=== PATIENT | male | born 1955 | race Caucasian/White ===

== ENCOUNTER 2024-11-10 14:38 | Inpatient (IN) | payer OTHER ==
[~2024-11-10] VITALS: Ht 167.6 cm; Wt 70.3 kg
[~2024-11-10 14:38] MED LIST: ARTIFICIAL TEAR1513 OP; ASPIRIN ADULT L81 M1 PO; CIPROFLOXACIN500 M4 PO; DEPAKOTE SPRIN125 MG PO; DEPAKOTE250 MG PO; DIVALPROEX SOD125 M1 PO; Depakote500 MG PO; HYDROXYZINE PAM50 MG PO; KLONOPIN1 M1 PO; LITHIUM CARBON300 M2 PO; LITHIUM CARBON450 M1 PO; NAMENDA-28 PO; NAMENDA-5 PO; NATURE'S BLEND F1 MG PO; RIVASTIGMINE T4.5 M1 PO; RIVASTIGMINE TAR6 M1 PO; THIAMINE HCL100 MG PO; TOPCARE OMEPRAZ20 MG PO; TYLENOL325 M2 PO; VIBRAMYCIN100 MG PO; VITAMIN B12500 MC2 PO; ZOCOR20 MG PO
[2024-11-10] MEDS ORDERED: LORazepam 1 MG TAB PO PRN (15:15)
[2024-11-10] MEDS ORDERED: hydrOXYzine hydrochloride 50 MG/ML VIAL IM PRN (15:15)
[2024-11-10] MEDS ORDERED: ACETAMINOPHEN 325 MG TAB PO PRN (16:00)
[2024-11-10] MEDS ORDERED: MG-AL HYDROXIDE/SIMETICONE 30 ML UDC PO PRN (16:00)
[2024-11-10 17:06] VITALS: BP 116/74
[2024-11-10 17:08] VITALS: BP 116/74
[2024-11-10] MEDS ORDERED: Glycerin/Hypromellose/Polyet 300 DRP BOT OPH PRN (17:25)
[2024-11-10 20:11] VITALS: BP 109/56
[2024-11-10] MEDS ORDERED: DIVALPROEX SODIUM 125 MG CAP PO SCH (21:00)
[2024-11-10] MEDS ORDERED: Thiamine 100 MG TAB PO SCH (21:00)
[2024-11-10] MEDS ORDERED: SIMVASTATIN 20 MG TAB PO SCH (21:00)
[2024-11-10] MEDS ORDERED: Memantine Hydrochloride 5 MG TAB PO SCH (21:00)
[2024-11-10] MEDS ORDERED: LITHIUM CARBONATE 450 MG TAB PO SCH (21:00)
[2024-11-10] MEDS ORDERED: Ciprofloxacin Hydrochloride 500 MG TAB PO SCH (22:00)
[2024-11-11] MEDS ORDERED: OMEPRAZOLE 20 MG CAP PO SCH (06:00)
[2024-11-11 06:19] LABS: BASO # 0.2 10*3/uL (0.0-0.1); BASO % 2.8 % (0.0-1.0); EOS # 0.8 10*3/uL (0.0-0.4); EOS % 8.9 % (1.0-4.0); MEAN CELL VOLUME 94.2 fl (80.0-94.0); MEAN CORPUSCULAR HGB 31.4 pg (27.0-31.0); MEAN PLATELET VOLUME 9.4 fl (9.6-12.3); MONO # 1.1 10*3/uL (0.1-1.0); MONO % 13.2 % (3.0-9.0); NEUT # 4.5 10*3/uL (2.3-7.9); NEUT % 53.0 % (47.0-73.0); NUCLEATED RED BLOOD CELL 0.0 % (0.0-0.0); NUCLEATED RED BLOOD CELL 0.0 10*3/uL (0.0-0.0); PLATELET COUNT AUTOMATED 206 10*3/uL (130-400); RED CELL DISTRI WIDTH 12.8 % (0-14.5)
[2024-11-11 06:34] LABS: BUN 17 mg/dl (9-23); LDL CHOLESTEROL 86 mg/dL (9-159); SGPT/ALT 21 U/L (5-49); VALPROIC ACID (DEPAKENE) 54.2 ug/ml (50-100)
[2024-11-11 06:53] LABS: VITAMIN D, 25-HYDROXY 54.9 ng/mL (30-100)
[2024-11-11 08:00] VITALS: BP 108/88
[2024-11-11] MEDS ORDERED: ASPIRIN, CHEWABLE 81 MG TAB PO SCH (09:00)
[2024-11-11] MEDS ORDERED: FOLIC ACID 1 MG TAB PO SCH (09:00)
[2024-11-11] MEDS ORDERED: RIVASTIGMINE 13.3 MG/24 HR TDM T SCH (09:00)
[2024-11-11] MEDS ORDERED: Albuterol Sulf/Ipratropium 3 ML VIAL NEB ONE (09:40)
[2024-11-11] MEDS ORDERED: CYANOCOBALAMIN 500 MCG TAB PO SCH (10:00)
[2024-11-11] MEDS ORDERED: Albuterol Sulf/Ipratropium 3 ML VIAL NEB PRN (10:35)
[2024-11-11 20:00] VITALS: BP 122/89
[2024-11-12 09:04] VITALS: BP 123/73
[2024-11-12] MEDS ORDERED: Bethanechol Chloride 10 MG TAB PO ONE (13:20)
[2024-11-12 20:00] VITALS: BP 117/54
[2024-11-13 07:47] VITALS: BP 139/78
[2024-11-13 20:00] VITALS: BP 115/60
[2024-11-14 08:00] VITALS: BP 95/64
[2024-11-14 20:00] VITALS: BP 105/55
[2024-11-15 08:00] VITALS: BP 110/67
[2024-11-15] MEDS ORDERED: DIVALPROEX SODIUM 125 MG CAP PO SCH (09:00)
[2024-11-15 20:00] VITALS: BP 116/71
[2024-11-15] MEDS ORDERED: Water, Sterile 10 ML VIAL ONE (23:28)
[2024-11-16 01:06] LABS: BILIRUBIN 1+ (Negative); BLOOD 1+ (Negative); CLARITY Clear (Clear); COLOR Dark Yellow (Yellow); KETONE Trace (Negative); LEUKO ESTERASE Trace (Negative); NITRITE Negative (Negative); PH 5.0 (4.5-8.0); SPECIFIC GRAVITY >= 1.030 (1.001-1.030); UROBILINOGEN 1.0 E.U./dl (0.0-1.0)
[2024-11-16 01:15] LABS: MUCOUS 1+
[2024-11-16 01:16] LABS: BACTERIA TRACE
[2024-11-16 07:37] LABS: BASO # 0.3 10*3/uL (0.0-0.1); BASO % 2.3 % (0.0-1.0); EOS # 0.1 10*3/uL (0.0-0.4); EOS % 1.3 % (1.0-4.0); MEAN CELL VOLUME 93.8 fl (80.0-94.0); MEAN CORPUSCULAR HGB 31.1 pg (27.0-31.0); MEAN PLATELET VOLUME 9.8 fl (9.6-12.3); MONO # 0.7 10*3/uL (0.1-1.0); MONO % 6.1 % (3.0-9.0); NEUT # 8.9 10*3/uL (2.3-7.9); NEUT % 81.0 % (47.0-73.0); NUCLEATED RED BLOOD CELL 0.0 % (0.0-0.0); NUCLEATED RED BLOOD CELL 0.0 10*3/uL (0.0-0.0); PLATELET COUNT AUTOMATED 221 10*3/uL (130-400); RED CELL DISTRI WIDTH 12.8 % (0-14.5)
[2024-11-16 08:23] LABS: BUN 24 mg/dl (9-23); SGPT/ALT 13 U/L (5-49); VALPROIC ACID (DEPAKENE) 27.1 ug/ml (50-100)
[2024-11-16 08:34] VITALS: BP 103/70
[2024-11-16] MEDS ORDERED: DIVALPROEX SODIUM 125 MG CAP PO SCH (13:00)
[2024-11-16 20:00] VITALS: BP 112/57
[2024-11-17] MEDS ORDERED: Water, Sterile 10 ML VIAL ONE (02:19)
[2024-11-17 08:00] VITALS: BP 101/59
[2024-11-17 20:00] VITALS: BP 135/113
[2024-11-18] MEDS ORDERED: Water, Sterile 10 ML VIAL ONE (00:57)
[2024-11-18 06:13] LABS: BUN 21 mg/dl (9-23)
[2024-11-18 06:33] LABS: BASO # 0.2 10*3/uL (0.0-0.1); BASO % 1.9 % (0.0-1.0); EOS # 0.2 10*3/uL (0.0-0.4); EOS % 2.2 % (1.0-4.0); MEAN CELL VOLUME 94.2 fl (80.0-94.0); MEAN CORPUSCULAR HGB 32.0 pg (27.0-31.0); MEAN PLATELET VOLUME 10.4 fl (9.6-12.3); MONO # 0.8 10*3/uL (0.1-1.0); MONO % 7.1 % (3.0-9.0); NEUT # 7.9 10*3/uL (2.3-7.9); NEUT % 72.8 % (47.0-73.0); NUCLEATED RED BLOOD CELL 0.0 % (0.0-0.0); NUCLEATED RED BLOOD CELL 0.0 10*3/uL (0.0-0.0); PLATELET COUNT AUTOMATED 244 10*3/uL (130-400); RED CELL DISTRI WIDTH 12.8 % (0-14.5)
[2024-11-18 08:00] VITALS: BP 112/69
[2024-11-18 20:00] VITALS: BP 125/86
[2024-11-19 08:46] VITALS: BP 105/69
[2024-11-19] MEDS ORDERED: DIVALPROEX SODIUM 125 MG CAP PO SCH (13:00)
[2024-11-19 20:00] VITALS: BP 128/72
[2024-11-20 08:05] VITALS: BP 113/99
[2024-11-20 20:00] VITALS: BP 123/92
[2024-11-21 07:53] VITALS: BP 98/73
[2024-11-21 20:00] VITALS: BP 100/67
[2024-11-21] MEDS ORDERED: Water, Sterile 10 ML VIAL ONE (22:51)
[2024-11-22 08:00] VITALS: BP 95/43
[2024-11-22] MEDS ORDERED: cloNIDine 0.2 MG PATCH T SCH (10:00)
[2024-11-22 20:00] VITALS: BP 103/58
[2024-11-23 07:32] LABS: BASO # 0.1 10*3/uL (0.0-0.1); BASO % 2.2 % (0.0-1.0); EOS # 0.3 10*3/uL (0.0-0.4); EOS % 5.5 % (1.0-4.0); MEAN CELL VOLUME 93.0 fl (80.0-94.0); MEAN CORPUSCULAR HGB 31.8 pg (27.0-31.0); MEAN PLATELET VOLUME 10.2 fl (9.6-12.3); MONO # 0.5 10*3/uL (0.1-1.0); MONO % 10.3 % (3.0-9.0); NEUT # 2.3 10*3/uL (2.3-7.9); NEUT % 49.5 % (47.0-73.0); NUCLEATED RED BLOOD CELL 0.0 % (0.0-0.0); NUCLEATED RED BLOOD CELL 0.0 10*3/uL (0.0-0.0); PLATELET COUNT AUTOMATED 146 10*3/uL (130-400); RED CELL DISTRI WIDTH 12.5 % (0-14.5)
[2024-11-23 08:00] VITALS: BP 97/46
[2024-11-23 08:00] LABS: BUN 22 mg/dl (9-23); SGPT/ALT 17 U/L (5-49); VALPROIC ACID (DEPAKENE) 56.2 ug/ml (50-100)
[2024-11-23 20:11] VITALS: BP 124/75
[2024-11-23] MEDS ORDERED: Water, Sterile 10 ML VIAL ONE (21:41)
[2024-11-24 08:29] VITALS: BP 85/40
[2024-11-24 09:45] LABS: BASO # 0.1 10*3/uL (0.0-0.1); BASO % 2.1 % (0.0-1.0); EOS # 0.2 10*3/uL (0.0-0.4); EOS % 5.5 % (1.0-4.0); MEAN CELL VOLUME 91.4 fl (80.0-94.0); MEAN CORPUSCULAR HGB 31.9 pg (27.0-31.0); MEAN PLATELET VOLUME 10.2 fl (9.6-12.3); MONO # 0.5 10*3/uL (0.1-1.0); MONO % 10.3 % (3.0-9.0); NEUT # 2.3 10*3/uL (2.3-7.9); NEUT % 52.4 % (47.0-73.0); NUCLEATED RED BLOOD CELL 0.0 % (0.0-0.0); NUCLEATED RED BLOOD CELL 0.0 10*3/uL (0.0-0.0); PLATELET COUNT AUTOMATED 141 10*3/uL (130-400); RED CELL DISTRI WIDTH 12.7 % (0-14.5)
[2024-11-24 10:08] LABS: BUN 17 mg/dl (9-23); SGPT/ALT 18 U/L (5-49)
[2024-11-24] MEDS ORDERED: diazePAM 2 MG TAB PO SCH (13:00)
[2024-11-24 20:00] VITALS: BP 122/67
[2024-11-25 08:32] VITALS: BP 92/68
[2024-11-25] MEDS ORDERED: diazePAM 2 MG TAB PO SCH (13:00)
[2024-11-25] MEDS ORDERED: diazePAM 10 MG/2 ML SYR IM PRN (17:10)
[2024-11-25] MEDS ORDERED: diazePAM 5 MG TAB PO PRN (17:10)
[2024-11-25 20:00] VITALS: BP 97/61
[2024-11-26 08:00] VITALS: BP 111/86
[2024-11-26 20:45] VITALS: BP 101/55
[2024-11-26] MEDS ORDERED: diazePAM 5 MG TAB PO SCH (21:00)
[2024-11-27 08:00] VITALS: BP 98/64
[2024-11-27] MEDS ORDERED: diazePAM 5 MG TAB PO SCH (13:00)
[2024-11-27 21:13] VITALS: BP 91/65
[2024-11-28 08:00] VITALS: BP 101/47
[2024-11-28] MEDS ORDERED: NATURE'S BLEND100 M2 PO (08:20)
[2024-11-28] MEDS ORDERED: RIVASTIGMINE1 EAC2 T (08:20)
[2024-11-28] MEDS ORDERED: NAMENDA-5 PO (08:20)
[2024-11-28] MEDS ORDERED: DIAZEPAM5 MG PO (08:20)
[2024-11-28] MEDS ORDERED: CLONIDINE1 EAC1 T (08:20)
[2024-11-28] MEDS ORDERED: NATURE'S BLEND F1 MG PO (08:20)
[2024-11-28] MEDS ORDERED: DIAZEPAM10 M1 PO (11:31)
== END 2024-11-28 12:50 | DRG 883 ==
LOC: 3N 14:38
PROVIDERS: Counselor Professional; Registered Nurse; Student in an Organized Health Care Education/Training Program; ADMIT Psychiatry & Neurology Psychiatry; ATTEND Psychiatry & Neurology Psychiatry
PROC: GZHZZZZ Group Psychotherapy (ICD-10-PCS; principal; 2024-11-12)
PROC: 0HBRXZZ Excision of Toe Nail, External Approach (ICD-10-PCS; 2024-11-13)
PROC: 0HBRXZZ Excision of Toe Nail, External Approach (ICD-10-PCS; 2024-11-13)
PROC: 0HBRXZZ Excision of Toe Nail, External Approach (ICD-10-PCS; 2024-11-13)
PROC: 0HBRXZZ Excision of Toe Nail, External Approach (ICD-10-PCS; 2024-11-13)
PROC: 0HBRXZZ Excision of Toe Nail, External Approach (ICD-10-PCS; 2024-11-13)
PROC: 0HBRXZZ Excision of Toe Nail, External Approach (ICD-10-PCS; 2024-11-13)
PROC: 0HBRXZZ Excision of Toe Nail, External Approach (ICD-10-PCS; 2024-11-13)
PROC: 0HBRXZZ Excision of Toe Nail, External Approach (ICD-10-PCS; 2024-11-13)
PROC: 0HBRXZZ Excision of Toe Nail, External Approach (ICD-10-PCS; 2024-11-13)
PROC: 0HBRXZZ Excision of Toe Nail, External Approach (ICD-10-PCS; 2024-11-13)
DX: F63.81 Intermittent explosive disorder (principal); N30.01 Acute cystitis with hematuria; E44.0 Moderate protein-calorie malnutrition; E51.2 Wernicke's encephalopathy; F01.C2 Vascular dementia, severe, with psychotic disturbance; K21.9 Gastro-esophageal reflux disease without esophagitis; G30.9 Alzheimer's disease, unspecified; F02.80 Dementia in other diseases classified elsewhere, unspecified severity, without behavioral disturbance, psychotic disturbance, mood disturbance, and anxiety; E78.2 Mixed hyperlipidemia; F32.A Depression, unspecified; F41.9 Anxiety disorder, unspecified; E55.9 Vitamin D deficiency, unspecified; R73.9 Hyperglycemia, unspecified; E53.9 Vitamin B deficiency, unspecified; B35.1 Tinea unguium; R41.0 Disorientation, unspecified; Z86.73 Personal history of transient ischemic attack (TIA), and cerebral infarction without residual deficits

== ENCOUNTER 2024-12-26 16:34 | Inpatient (IN) | payer OTHER ==
[~2024-12-26] VITALS: Ht 183 cm; Wt 60.0 kg
[~2024-12-26 16:34] MED LIST changes: +CLONIDINE1 EAC1 T; +DIAZEPAM10 M1 PO; +DIAZEPAM5 MG PO; +NATURE'S BLEND100 M2 PO; +RIVASTIGMINE1 EAC2 T
[2024-12-26 16:40] VITALS: BP 105/69
[2024-12-26 17:23] LABS: BASO # 0.1 10*3/uL (0.0-0.1); BASO % 1.1 % (0.0-1.0); EOS # 0.2 10*3/uL (0.0-0.4); EOS % 2.8 % (1.0-4.0); MEAN CELL VOLUME 94.8 fl (80.0-94.0); MEAN CORPUSCULAR HGB 32.3 pg (27.0-31.0); MEAN PLATELET VOLUME 10.4 fl (9.6-12.3); MONO # 0.6 10*3/uL (0.1-1.0); MONO % 10.9 % (3.0-9.0); NEUT # 2.9 10*3/uL (2.3-7.9); NEUT % 51.2 % (47.0-73.0); NUCLEATED RED BLOOD CELL 0.0 % (0.0-0.0); NUCLEATED RED BLOOD CELL 0.0 10*3/uL (0.0-0.0); PLATELET COUNT AUTOMATED 179 10*3/uL (130-400); RED CELL DISTRI WIDTH 14.4 % (0-14.5)
[2024-12-26 17:50] LABS: BUN 19 mg/dl (9-23)
[2024-12-26] MEDS ORDERED: ACETAMINOPHEN 325 MG TAB PO PRN (20:55)
[2024-12-26] MEDS ORDERED: MG-AL HYDROXIDE/SIMETICONE 30 ML UDC PO PRN (20:55)
[2024-12-26] MEDS ORDERED: Menthol/Zinc Oxide 4 GM THIN T PRN (21:05)
[2024-12-26] MEDS ORDERED: NAMENDA-28 PO (21:11)
[2024-12-26] MEDS ORDERED: REMERON15 M2 PO (21:12)
[2024-12-26] MEDS ORDERED: VISTARIL25 MG PO (21:13)
[2024-12-26] MEDS ORDERED: ATIVAN1 MG PO (21:13)
[2024-12-26] MEDS ORDERED: VISTARIL25 MG IM (21:16)
[2024-12-26] MEDS ORDERED: GEODON20 MG/1 ML IM (21:17)
[2024-12-26] MEDS ORDERED: LORazepam 1 MG TAB PO PRN (21:20)
[2024-12-26] MEDS ORDERED: hydrOXYzine hydrochloride 50 MG/ML VIAL IM PRN (21:20)
[2024-12-26] MEDS ORDERED: cloNIDine 0.2 MG PATCH T SCH (22:00)
[2024-12-27 06:19] LABS: BILIRUBIN Negative (Negative); BLOOD Negative (Negative); CLARITY Clear (Clear); COLOR Yellow (Yellow); KETONE Negative (Negative); LEUKO ESTERASE Negative (Negative); NITRITE Negative (Negative); PH 5.5 (4.5-8.0); SPECIFIC GRAVITY <= 1.005 (1.001-1.030); UROBILINOGEN 1.0 E.U./dl (0.0-1.0)
[2024-12-27 06:24] LABS: BASO # 0.0 10*3/uL (0.0-0.1); BASO % 0.7 % (0.0-1.0); EOS # 0.2 10*3/uL (0.0-0.4); EOS % 2.6 % (1.0-4.0); MEAN CELL VOLUME 92.9 fl (80.0-94.0); MEAN CORPUSCULAR HGB 32.2 pg (27.0-31.0); MEAN PLATELET VOLUME 10.7 fl (9.6-12.3); MONO # 0.6 10*3/uL (0.1-1.0); MONO % 10.3 % (3.0-9.0); NEUT # 3.5 10*3/uL (2.3-7.9); NEUT % 61.6 % (47.0-73.0); NUCLEATED RED BLOOD CELL 0.0 % (0.0-0.0); NUCLEATED RED BLOOD CELL 0.0 10*3/uL (0.0-0.0); PLATELET COUNT AUTOMATED 185 10*3/uL (130-400); RED CELL DISTRI WIDTH 14.5 % (0-14.5)
[2024-12-27 06:38] LABS: BACTERIA TRACE; CALCIUM OXALATE CRYSTALS 1+; EPITHELIAL CELLS 0-2; WBC 0-2 wbc/hpf (0-5)
[2024-12-27 06:40] LABS: BUN 14 mg/dl (9-23); LDL CHOLESTEROL 82 mg/dL (9-159); SGPT/ALT 9 U/L (5-49)
[2024-12-27 07:40] LABS: VITAMIN D, 25-HYDROXY 52.0 ng/mL (30-100)
[2024-12-27 08:00] VITALS: BP 80/50
[2024-12-27] MEDS ORDERED: SODIUM CHLORIDE 0.9% 1,000 ML IV ONE ×2 (08:52→13:55)
[2024-12-27] MEDS ORDERED: ASPIRIN, CHEWABLE 81 MG TAB PO SCH (09:00)
[2024-12-27] MEDS ORDERED: RIVASTIGMINE 13.3 MG/24 HR TDM T SCH (09:00)
[2024-12-27 09:40] VITALS: BP 88/58
[2024-12-27 11:41] VITALS: BP 102/68
[2024-12-27 16:05] VITALS: BP 96/59
[2024-12-27] MEDS ORDERED: SIMVASTATIN 20 MG TAB PO SCH (21:00)
[2024-12-27] MEDS ORDERED: Mirtazapine 15 MG TAB PO SCH (21:00)
[2024-12-27 22:00] VITALS: BP 125/68
[2024-12-28 06:08] LABS: BUN 16 mg/dl (9-23)
[2024-12-28 06:14] LABS: BASO # 0.1 10*3/uL (0.0-0.1); BASO % 0.8 % (0.0-1.0); EOS # 0.2 10*3/uL (0.0-0.4); EOS % 2.0 % (1.0-4.0); MEAN CELL VOLUME 94.0 fl (80.0-94.0); MEAN CORPUSCULAR HGB 32.7 pg (27.0-31.0); MEAN PLATELET VOLUME 11.0 fl (9.6-12.3); MONO # 0.6 10*3/uL (0.1-1.0); MONO % 7.1 % (3.0-9.0); NEUT # 6.4 10*3/uL (2.3-7.9); NEUT % 75.6 % (47.0-73.0); NUCLEATED RED BLOOD CELL 0.0 % (0.0-0.0); NUCLEATED RED BLOOD CELL 0.0 10*3/uL (0.0-0.0); PLATELET COUNT AUTOMATED 191 10*3/uL (130-400); RED CELL DISTRI WIDTH 14.7 % (0-14.5)
[2024-12-28 08:00] VITALS: BP 97/43
[2024-12-28 15:00] VITALS: BP 92/62
[2024-12-28 22:00] VITALS: BP 112/60
[2024-12-29 08:00] VITALS: BP 97/60
[2024-12-29 20:00] VITALS: BP 122/109
[2024-12-29] MEDS ORDERED: Water, Sterile 10 ML VIAL ONE (21:06)
[2024-12-30 08:00] VITALS: BP 120/77
[2024-12-30] MEDS ORDERED: Water, Sterile 10 ML VIAL ONE (15:30)
[2024-12-30 20:00] VITALS: BP 118/89
[2024-12-31 08:08] VITALS: BP 110/77
[2024-12-31 20:00] VITALS: BP 106/63
[2025-01-01 20:00] VITALS: BP 110/93
[2025-01-01] MEDS ORDERED: CITALOPRAM 20 MG TAB PO SCH (21:00)
[2025-01-01] MEDS ORDERED: Water, Sterile 10 ML VIAL ONE (21:23)
[2025-01-02 08:53] VITALS: BP 93/66
[2025-01-02 20:00] VITALS: BP 99/65
[2025-01-02] MEDS ORDERED: RAMELTEON 8 MG TAB PO SCH (21:00)
[2025-01-03 08:00] VITALS: BP 116/52; BP 93/66
[2025-01-03] MEDS ORDERED: LORazepam 1 MG TAB PO PRN (09:40)
[2025-01-03 20:00] VITALS: BP 118/67
[2025-01-04 07:23] LABS: BASO # 0.1 10*3/uL (0.0-0.1); BASO % 0.9 % (0.0-1.0); EOS # 0.2 10*3/uL (0.0-0.4); EOS % 3.0 % (1.0-4.0); MEAN CELL VOLUME 97.1 fl (80.0-94.0); MEAN CORPUSCULAR HGB 33.0 pg (27.0-31.0); MEAN PLATELET VOLUME 9.9 fl (9.6-12.3); MONO # 0.5 10*3/uL (0.1-1.0); MONO % 8.7 % (3.0-9.0); NEUT # 3.5 10*3/uL (2.3-7.9); NEUT % 62.5 % (47.0-73.0); NUCLEATED RED BLOOD CELL 0.0 % (0.0-0.0); NUCLEATED RED BLOOD CELL 0.0 10*3/uL (0.0-0.0); PLATELET COUNT AUTOMATED 182 10*3/uL (130-400); RED CELL DISTRI WIDTH 14.3 % (0-14.5)
[2025-01-04 07:51] LABS: BUN 19 mg/dl (9-23); SGPT/ALT 18 U/L (5-49)
[2025-01-04 08:00] VITALS: BP 100/54
[2025-01-04 20:00] VITALS: BP 106/67
[2025-01-05 08:00] VITALS: BP 109/69
[2025-01-05] MEDS ORDERED: Rivastigmine Tartrate 9.5 MG/24 HR PATCH T SCH (12:56)
[2025-01-05 20:00] VITALS: BP 138/74
[2025-01-06 09:22] VITALS: BP 90/41
[2025-01-06] MEDS ORDERED: Menthol/Zinc Oxide 4 GM THIN T PRN (14:55)
[2025-01-06] MEDS ORDERED: risperiDONE 0.5 MG TAB PO SCH (15:00)
[2025-01-06 20:00] VITALS: BP 123/93
[2025-01-07 08:00] VITALS: BP 85/65
[2025-01-07 20:00] VITALS: BP 103/67
[2025-01-07] MEDS ORDERED: Water, Sterile 10 ML VIAL ONE (21:20)
[2025-01-08 08:16] VITALS: BP 98/46
[2025-01-08] MEDS ORDERED: risperiDONE 0.5 MG TAB PO SCH (09:00)
[2025-01-08 20:00] VITALS: BP 104/78
[2025-01-09 09:46] VITALS: BP 94/66
[2025-01-09] MEDS ORDERED: RAMELTEON 8 MG TAB PO SCH (22:00)
[2025-01-10 08:53] VITALS: BP 118/61
[2025-01-10] MEDS ORDERED: risperiDONE 1 MG TAB PO SCH (15:00)
[2025-01-10 20:00] VITALS: BP 130/100
[2025-01-10 20:28] LABS: BILIRUBIN Negative (Negative); BLOOD Negative (Negative); CLARITY Clear (Clear); COLOR Yellow (Yellow); KETONE Negative (Negative); LEUKO ESTERASE Negative (Negative); NITRITE Negative (Negative); PH 7.0 (4.5-8.0); SPECIFIC GRAVITY 1.015 (1.001-1.030); UROBILINOGEN 0.2 E.U./dl (0.0-1.0)
[2025-01-10 20:37] LABS: BACTERIA 2+; MUCOUS 2+; RBC 0-2 rbc/hpf (0-2); WBC 0-2 wbc/hpf (0-5)
[2025-01-11 06:18] LABS: BASO # 0.1 10*3/uL (0.0-0.1); BASO % 1.1 % (0.0-1.0); EOS # 0.2 10*3/uL (0.0-0.4); EOS % 3.1 % (1.0-4.0); MEAN CELL VOLUME 97.2 fl (80.0-94.0); MEAN CORPUSCULAR HGB 32.6 pg (27.0-31.0); MEAN PLATELET VOLUME 9.7 fl (9.6-12.3); MONO # 0.5 10*3/uL (0.1-1.0); MONO % 8.3 % (3.0-9.0); NEUT # 4.3 10*3/uL (2.3-7.9); NEUT % 67.3 % (47.0-73.0); NUCLEATED RED BLOOD CELL 0.0 % (0.0-0.0); NUCLEATED RED BLOOD CELL 0.0 10*3/uL (0.0-0.0); PLATELET COUNT AUTOMATED 162 10*3/uL (130-400); RED CELL DISTRI WIDTH 14.0 % (0-14.5)
[2025-01-11 07:15] LABS: BUN 13 mg/dl (9-23); SGPT/ALT 15 U/L (5-49)
[2025-01-11 08:00] VITALS: BP 125/67
[2025-01-11] MEDS ORDERED: RIVASTIGMINE 13.3 MG/24 HR TDM T SCH (09:00)
[2025-01-11] MEDS ORDERED: Rivastigmine Tartrate 9.5 MG/24 HR PATCH T SCH (09:00)
[2025-01-11 20:00] VITALS: BP 89/54
[2025-01-11 23:36] VITALS: BP 99/45
[2025-01-12 01:19] VITALS: BP 92/51
[2025-01-12 01:44] VITALS: BP 105/62
[2025-01-12 08:22] VITALS: BP 95/40
[2025-01-12] MEDS ORDERED: RIVASTIGMINE 13.3 MG/24 HR TDM T SCH (09:00)
[2025-01-12 20:00] VITALS: BP 96/43
[2025-01-13 08:00] VITALS: BP 153/94
[2025-01-13] MEDS ORDERED: RISPERDAL1 M1 PO (09:48)
[2025-01-13] MEDS ORDERED: MEMANTINE HCL10 MG PO (09:48)
[2025-01-13] MEDS ORDERED: RIVASTIGMINE1 EAC2 T (09:48)
[2025-01-13] MEDS ORDERED: UZEDY100 MG/0.2 SQ (09:48)
[2025-01-13] MEDS ORDERED: CITALOPRAM20 MG PO (09:48)
[2025-01-13] MEDS ORDERED: RAMELTEON8 MG PO (09:48)
== END 2025-01-13 13:35 | DRG 883 ==
LOC: ED 16:34 → 3N 18:53
PROVIDERS: Counselor Professional; Emergency Medicine; Registered Nurse; ADMIT Psychiatry & Neurology Psychiatry; ATTEND Psychiatry & Neurology Psychiatry
PROC: GZHZZZZ Group Psychotherapy (ICD-10-PCS; principal; 2024-12-27)
PROC: GZ56ZZZ Individual Psychotherapy, Supportive (ICD-10-PCS; 2024-12-27)
PROC: 0HBRXZZ Excision of Toe Nail, External Approach (ICD-10-PCS; 2024-12-27)
PROC: 0HBRXZZ Excision of Toe Nail, External Approach (ICD-10-PCS; 2024-12-27)
PROC: 0HBRXZZ Excision of Toe Nail, External Approach (ICD-10-PCS; 2024-12-27)
PROC: 0HBRXZZ Excision of Toe Nail, External Approach (ICD-10-PCS; 2024-12-27)
PROC: 0HBRXZZ Excision of Toe Nail, External Approach (ICD-10-PCS; 2024-12-27)
PROC: 0HBRXZZ Excision of Toe Nail, External Approach (ICD-10-PCS; 2024-12-27)
PROC: 0HBRXZZ Excision of Toe Nail, External Approach (ICD-10-PCS; 2024-12-27)
PROC: 0HBRXZZ Excision of Toe Nail, External Approach (ICD-10-PCS; 2024-12-27)
PROC: 0HBRXZZ Excision of Toe Nail, External Approach (ICD-10-PCS; 2024-12-27)
PROC: 0HBRXZZ Excision of Toe Nail, External Approach (ICD-10-PCS; 2024-12-27)
DX: F63.81 Intermittent explosive disorder (principal); E43 Unspecified severe protein-calorie malnutrition; G93.41 Metabolic encephalopathy; F02.811 Dementia in other diseases classified elsewhere, unspecified severity, with agitation; E51.2 Wernicke's encephalopathy; F02.84 Dementia in other diseases classified elsewhere, unspecified severity, with anxiety; F02.83 Dementia in other diseases classified elsewhere, unspecified severity, with mood disturbance; Z68.1 Body mass index [BMI] 19.9 or less, adult; G30.9 Alzheimer's disease, unspecified; K21.9 Gastro-esophageal reflux disease without esophagitis; F91.9 Conduct disorder, unspecified; I10 Essential (primary) hypertension; F10.10 Alcohol abuse, uncomplicated; D53.9 Nutritional anemia, unspecified; I95.9 Hypotension, unspecified; E78.2 Mixed hyperlipidemia; B35.1 Tinea unguium; Z66 Do not resuscitate; Z79.899 Other long term (current) drug therapy; Z79.01 Long term (current) use of anticoagulants; Z79.2 Long term (current) use of antibiotics; Z86.73 Personal history of transient ischemic attack (TIA), and cerebral infarction without residual deficits; Z86.16 Personal history of COVID-19; Y90.0 Blood alcohol level of less than 20 mg/100 ml